=== PATIENT | male | born 1980 | race Caucasian/White ===

== ENCOUNTER 2017-05-24 16:48 | Inpatient (IN) | payer MEDICAID ==
[~2017-05-24] VITALS: Ht 177.8 cm; Wt 148.1 kg
[2017-05-24 18:42] VITALS: BP 174/84; PULSE 92; RESP 19; TEMP 98.3
[2017-05-24] MEDS ORDERED: ALUMINUM/MAGNESIUM/SIMETH 30 ML CUP PO PRN (20:15)
[2017-05-24] MEDS ORDERED: BENZTROPINE MESYLATE 2 MG/2 ML VIAL IM PRN (20:15)
[2017-05-24] MEDS ORDERED: diphenhydrAMINE HCL 50 MG/ML VIAL IM PRN (20:15)
[2017-05-24] MEDS ORDERED: traZODone HCL 50 MG TAB PO PRN (20:15)
[2017-05-24] MEDS ORDERED: BENZTROPINE MESYLATE 1 MG TAB PO PRN (20:15)
[2017-05-24] MEDS ORDERED: ACETAMINOPHEN 325 MG TAB PO PRN (20:15)
[2017-05-24] MEDS ORDERED: diphenhydrAMINE HCL 50 MG CAP PO PRN (20:15)
[2017-05-24] MEDS ORDERED: hydrOXYzine HCL 50 MG TAB PO PRN (20:15)
[2017-05-24] MEDS ORDERED: diphenhydrAMINE HCL 50 MG/ML VIAL - HS PRN IM (20:15)
[2017-05-24] MEDS ORDERED: diphenhydrAMINE HCL 50 MG CAP - HS PRN PO (20:15)
[2017-05-24] MEDS ORDERED: MAGNESIUM HYDROXIDE SUSP 30 ML CUP PO PRN (20:15)
[2017-05-24] MEDS ORDERED: REMOVE OLD NICOTINE PATCH T-DERMAL SCH (21:00)
[2017-05-25 05:39] VITALS: BP 164/97; PULSE 90; RESP 18; TEMP 98; O2SAT 98
[2017-05-25] MEDS ORDERED: NICOTINE 21 MG/24 HR PATCH T-DERMAL SCH (09:00)
[2017-05-25 09:17] LABS: BASOPHIL % 0.6 % (0.0-2.0); EOSINOPHIL # 0.3 TH/MM3 (0-0.4); HEMATOCRIT 43.5 % (39.0-51.0); HEMOGLOBIN 14.7 GM/DL (13.0-17.0); LYMPH % 33.9 % (9.0-44.0); LYMPHOCYTE # 2.5 TH/MM3 (1.0-4.8); MEAN CELL VOLUME 91.9 FL (80.0-100.0); MEAN CORPUSCULAR HGB CONC 33.7 % (32.0-36.0); MEAN PLATELET VOLUME 7.8 FL (7.0-11.0); MONO % 6.9 % (0.0-8.0); MONOCYTE # 0.5 TH/MM3 (0-0.9); NEUT % 54.6 % (16.0-70.0); PLATELET COUNT 221 TH/MM3 (150-450); RED BLOOD COUNT 4.74 MIL/MM3 (4.50-5.90); WHITE BLOOD COUNT 7.4 TH/MM3 (4.0-11.0)
--- NOTE | 2017-05-25 09:23 | HHI.HP ---
Provisional Diagnosis Admission Date May 24, 2017 at 18:18 [place] I. 1. Major depressive disorder, recurrent, severe with psychotic features Rule-out component of drug-induced mood disorder, adjustment reaction, mood disorder due to [facility] 2. Cannabis abuse 3. Rule-out cocaine abuse [place] II. Deferred Certification of Person's Competence To Provide Express and Informed Consent I have personally examined Zelalem Hardin , a person being served at [facility] on, May 25, 2017 09:23. Express and informed consent means consent voluntarily given in writing, by a competent person, after sufficient explanation and disclosure of the subject matter involved to enable the person to make a knowing and willful decision without any element of force, fraud, deceit, duress, or other form of constraint or coercion. This person is 18 years of age or older, is not now known to be incompetent to consent to treatment with a guardian advocate, and does not have a health care surrogate or proxy currently making medical treatment decisions. I have found this person to be one of the following: [x] Competent to provide express and informed consent, as defined above, for voluntary admission to this facility and is competent to provide express and informed consent for treatment. He/she has the consistent capacity to make well reasoned, willful, and knowing decisions concerning his or her medical or mental health treatment. The person fully and consistently understands the purpose of the admission for examination/placement and is fully capable of personally exercising all rights assured [place] Incompetent to provide express and informed consent to voluntary admission, and this is incompetent to provide express and informed consent to treatment. The person must be transferred to involuntary status and a petition for a guardian advocate filed with the Circuit Court. [] Refusing to provide express and informed consent to voluntary admission but is competent to provide express and informed consent for treatment. The person must be discharged or transferred to involuntary status. Form shall be completed within 24 hours of a person's arrival at the receiving facility and filed in the clinical record of each person: 1. Admitted on a voluntary basis 2. Permitted to provide express and informed consent to his/her own treatment 3. Allowed to transfer from involuntary to voluntary status 4. Prior to permitting a person to consent to his or her own treatment after having been previously found incompetent to consent to treatment. History of Present Illness Capacity: Has Capacity Psych Chief Complaint: Depression, SI HPI Mr. Hardin is a 37-year-old male with no previous psychiatric diagnoses who presents in transfer from outside hospital under [place] Act. Documentation from outside hospital reviewed. Patient presented there voluntarily complaining of depression and suicidal ideation with plan to throw himself off of the second floor. Patient was placed under a Peralta act by ED provider. Reviewing the electronic medical record, it appears this is patient's first visit to [facility] Patient seen and examined with nurse. Chart reviewed. Case discussed with nursing staff. On my examination today, the patient is tearful and dysphoric. He reports that he has been feeling increasingly depressed since he lost his job about a month ago. Mood became acutely worse 4-5 days ago without clear trigger. He endorses hypersomnia, decreased appetite, hopeless, worthless and guilty feelings. He endorses onset of suicidal ideation in the same 4-5 day timeframe with plan to throw himself from the second story of his house. He endorses ongoing suicidal ideation now without specific plan, and he contracts for safety on the inpatient unit. Following worsening of his mood, he has experienced onset of auditory hallucinations of voices telling him to run away and also of his children's footsteps. He does not report any CAH to injure self /others. I can elicit no delusional material. The patient does report he feels 'judged' but in context this seems more related to some degree of social anxiety than to, e.g. paranoia. I can elicit no hypomanic or manic symptoms now , nor can I elicit any history of same with close questioning. He reports he had a similar, but much less severe depressive episode about 10 years ago for which he did not seek treatment at the time. The remainder of the psychiatric ROS is negative. The patient has a history of asthma and complains of some mild shortness of breath, and I have ordered albuterol inhaler. No other physical complaints. Past psychiatric history: The patient denies a history of formal psychiatric diagnosis although he does have the previous reported depressive episode noted above. He has never seen an outpatient psychiatrist he tells me, nor has he been on any psychotropic medication treatment. He denies a history of suicide attempts. He does endorse a history of assault charges as a juvenile but denies any legal issues or violent history in adulthood. Family history: The patient reports that his mother and maternal aunt struggle with depression. His mother has attempted suicide in the past. He denies a family history of substance use issues. Chemical dependency history: The patient reports that he has relapsed to substance use in the setting of unemployment. He reports relapsed to cannabis. He believes the cocaine found in his urine toxicology is because his friend slipped some cocaine into the cannabis that he was smoking. Contrary to the report from the outside hospital, the patient denies any significant use of alcohol. He denies use of benzos or synthetics. He denies any other substance use. Social history: The patient is . He has 2 children: a 4-year-old daughter and a 2-year-old son. He has 11th grade education. 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 His works to support the family now and he notes tearfully that she works "too much." He denies any history. He denies any legal history in adulthood. He does keep a hunting rifle locked and unloaded. He notes that his has the escamilla to the weapon. He is of the Buddhism phillip. He denies a history of abuse or other trauma. Review of Systems Except as stated in HPI: all other systems reviewed are Neg Past Family Social History Coded Allergies: Penicillins (Verified Allergy, Intermediate, 05/24/17) Past Medical History Includes a history of asthma and GERD Current Medications Medications (Trade) Dose Ordered Sig/Tayla Route Start Time Stop Time Status Last Admin (Atarax) 50 mg Q6H PRN PO 05/24/17 20:15 Future Hold (Benadryl) 50 mg Q6H PRN PO 05/24/17 20:15 Future Hold (Benadryl Inj) 50 mg Q6H PRN IM 05/24/17 20:15 Future Hold (Cogentin) 1 mg Q12H PRN PO 05/24/17 20:15 Future Hold (Cogentin Inj) 1 mg Q12H PRN IM 05/24/17 20:15 Future Hold (Benadryl) 50 mg HS PRN PO 05/24/17 20:15 Future Hold (Benadryl Inj) 50 mg HS PRN IM 05/24/17 20:15 Future Hold (Desyrel) 50 mg HS PRN PO 05/24/17 20:15 Future Hold (Tylenol) 650 mg Q4H PRN PO 05/24/17 20:15 (Milk Of Magnesia Liq) 30 ml DAILY PRN PO 05/24/17 20:15 (Mag-Al Plus Susp Liq) 30 ml Q6H PRN PO 05/24/17 20:15 (Habitrol 21 Mg Patch.24 Hr) 1 patch DAILY T-DERMAL 05/25/17 09:00 Miscellaneous Information 1 HS T-DERMAL 05/24/17 21:00 (Proair Hfa Inh) 2 puff Q4H PRN INH 05/25/17 09:00 UNV Patient's Strengths (min. 2) In a monitored setting. Attending to basic needs. Physical Exam Physical exam completed by ED provider at outside hospital. On my examination today, the patient appears to be in no acute physical distress. No motor abnormalities noted. No signs of intoxication or withdrawal noted. Labs and vitals reviewed: Vital Signs Vital Signs Date Time Temp Pulse Resp B/P (MAP) Pulse Ox O2 Delivery O2 Flow Rate FiO2 05/25/17 05:39 98.0 90 18 164/97 (119) 98 Lab Results Test 05/25/17 08:45 White Blood Count 7.4 TH/MM3 Red Blood Count 4.74 MIL/MM3 Hemoglobin 14.7 GM/DL Hematocrit 43.5 % Mean Corpuscular Volume 91.9 FL Mean Corpuscular Hemoglobin 31.0 PG Mean Corpuscular Hemoglobin Concent 33.7 % Red Cell Distribution Width 14.0 % Platelet Count 221 TH/MM3 Mean Platelet Volume 7.8 FL Neutrophils (%) (Auto) 54.6 % Lymphocytes (%) (Auto) 33.9 % Monocytes (%) (Auto) 6.9 % Eosinophils (%) (Auto) 4.0 % Basophils (%) (Auto) 0.6 % Neutrophils # (Auto) 4.0 TH/MM3 Lymphocytes # (Auto) 2.5 TH/MM3 Monocytes # (Auto) 0.5 TH/MM3 Eosinophils # (Auto) 0.3 TH/MM3 Basophils # (Auto) 0.0 TH/MM3 CBC Comment DIFF FINAL Differential Comment Laboratories from outside hospital reviewed: Urine toxicology positive for cocaine and cannabinoids. CBC unremarkable. CMP reveals mild hyperglycemia in a nonfasting sample at 121. Tylenol level detectable but not toxic. Salicylate and alcohol level undetectable. Mental Status Examination Appearance: Appropriate Consciousness: Alert Orientation: x4 Motor Activity: Normal gait Speech: Unremarkable Language: Adequate Fund of Knowledge: Adequate Attention and Concentration: Adequate Memory: Unremarkable (Grossly intact on clinical exam) Mood: Other (Depressed) Affect: Other (Tearful, dysphoric) Thought Process & Associations: Intact, Logical, Linear Thought Content: Hallucinations, Other (Rumination) Hallucination Type: Auditory (As noted above) Delusion Type: None Suicidal Ideation: Yes Suicidal Plan: No Suicidal Intention: No (Contracts for safety on inpatient unit) Homicidal Ideation: No Homicidal Plan: No Homicidal Intention: No Insight: Fair Judgment: Impulsive Assessment & Plan Problem List: (1) Major depressive disorder, recurrent, severe with psychotic symptoms ICD Codes: F33.3 - Major depressive disorder, recurrent, severe with psychotic symptoms (2) Cannabis abuse ICD Codes: F12.10 - Cannabis abuse, uncomplicated Assessment & Plan 37-year-old male with psychiatric history as detailed above who presents in transfer from outside hospital under a Peralta act. On my examination today, the patient reports onset of depression following loss of job about a month ago. Mood is acutely worse within the last week with onset of suicidal ideation. The patient reports ongoing suicidal ideation now, albeit without specific plan. He also reports recent onset of psychotic symptoms in the setting of his depression, and I am concerned for a mood disorder with psychotic features, although these also may be related to the substances found in his urine toxicology or to some general medical condition. It is also possible that he is experiencing a particularly severe adjustment reaction to the loss of his job. I will plan to admit the patient to the inpatient psychiatric unit for safety, observation and stabilization. Admit inpatient. Voluntary status. Initiate Prozac 20 mg daily for management of low mood with plans to titrate to effect. For psychotic symptoms, start Abilify 5mg daily with plans to titrate to effect. Will initiate laboratory and imaging workup for organic causes of psychotic symptoms. Ativan as needed for anxiety, Benadryl as needed for sleep, Cogentin as needed for EPS. Albuterol inhaler and Duonebs p.r.n. for wheezing/SOB. PPI for GERD. R/B/A for all medications discussed with patient. In particular, reviewed possibility of sexual side effects with SSRI and metabolic/movement disorder side effects with antipsychotic. BPs elevated, and I will consult hospitalist for further management. Patient has no signs of GABAergic withdrawal at present , and I do not think elevated BP is related to this (EtOH use reported at outside hospital, but patient denies use to me). We will monitor for signs of incipient withdrawal. Vitals every shift. Counselor to see. Collateral information. Disposition planning. Estimated length of stay: 5-7 days. Discharge Planning Pending psychiatric stabilization Request HC Surrog/Guard Advoc?: No Darvin Mejia MD May 25, 2017 09:23
[2017-05-25] MEDS ORDERED: NICOTINE 21 MG/24 HR PATCH T-DERMAL PRN (09:30)
[2017-05-25] MEDS: FLUoxetine HCL 20 MG CAP PO SCH (09:30)
[2017-05-25] MEDS ORDERED: LORazepam 1 MG TAB PO PRN (09:30)
[2017-05-25] MEDS: ARIPiprazole 5 MG TAB PO SCH (09:30)
[2017-05-25] MEDS ORDERED: LORazepam 2 MG/ML VIAL IM PRN (09:30)
[2017-05-25 09:48] LABS: ALBUMIN 3.7 GM/DL (3.4-5.0); AST (GOT) 19 U/L (15-37); BICARBONATE 27.5 MEQ/L (21.0-32.0); BLOOD UREA NITROGEN 12 MG/DL (7-18); CALCIUM 8.6 MG/DL (8.5-10.1); CHLORIDE 107 MEQ/L (98-107); CREATININE 1.22 MG/DL (0.60-1.30); GLOMERULAR FILTRATION RATE 68 ML/MIN (>89); GLUCOSE,RANDOM 148 MG/DL (74-106); SODIUM (NA) 141 MEQ/L (136-145)
[2017-05-25 09:50] LABS: CHOLESTEROL 123 MG/DL (120-200); TRIGLYCERIDES 116 MG/DL (42-150)
[2017-05-25 10:00] LABS: ALKALINE PHOSPHATASE 79 U/L (45-117); ALT (GPT) 33 U/L (12-78); CHOLESTEROL/ HDL RATIO 3.56 RATIO; HDL CHOLESTEROL 34.5 MG/DL (40.0-60.0); LDL CHOLESTEROL 65 MG/DL (0-99); TOTAL BILIRUBIN ADULT 0.3 MG/DL (0.2-1.0); TOTAL PROTEIN 7.7 GM/DL (6.4-8.2)
[2017-05-25] MEDS: ALBUTEROL SULFATE 90 MCG/ACT HFA 8 GM INHALER INH PRN ×2 (10:01→21:15)
[2017-05-25] MEDS ORDERED: RESP: ALBUTEROL 2.5 MG/IPRATROPIUM 0.5 MG NEB (PRN) NEB (12:45)
[2017-05-25] MEDS: PANTOPRAZOLE SOD 40 MG DELAYED RELEASE TAB PO SCH (13:00)
[2017-05-25 16:32] LABS: HEMOGLOBIN A1C 5.6 % (4.3-6.0)
[2017-05-25 16:34] VITALS: BP 152/91; PULSE 89; RESP 16; TEMP 98.4; O2SAT 97
--- NOTE | 2017-05-25 20:36 | RADRPT ---
EXAM DATE/TIME: 05/25/2017 20:26 [facility] COMPARISON: No previous studies available for comparison. INDICATIONS : Altered mental status. RADIATION DOSE: 52.06 CTDIvol (mGy) MEDICAL HISTORY : None SURGICAL HISTORY : None. ENCOUNTER: Initial ACUITY: 1 day PAIN SCALE: 0/10 LOCATION: cranial TECHNIQUE: Multiple contiguous axial images were obtained of the head. Using automated exposure control and adj ustment of the mA and/or kV according to patient size, radiation dose was kept as low as reasonably a chievable to obtain optimal diagnostic quality images. DICOM format image data is available electro nically for review and comparison. FINDINGS: CEREBRUM: The ventricles are normal for age. No evidence of midline shift, mass lesion, hemorrhage or acute in farction. No extra-axial fluid collections are seen. POSTERIOR FOSSA: The cerebellum and brainstem are intact. The 4th ventricle is midline. The cerebellopontine angle i s unremarkable. EXTRACRANIAL: The visualized portion of the orbits is intact. SKULL: The calvaria is intact. No evidence of skull fracture. CONCLUSION: Normal examination. Blayne Virgen MD on May 25, 2017 at 20:33 Board Certified Radiologist. This report was verified electronically.
--- NOTE | 2017-05-25 22:45 | EKG ---
Date Performed: 05/24/2017 Time Performed: 19:42:14 PTAGE: 37 years EKG: Sinus rhythm NORMAL ECG NO PREVIOUS TRACING DOCTOR: Beau Ulloa Interpretating Date/Time 05/25/2017 22:43:37
[2017-05-26 05:43] VITALS: BP 154/76; PULSE 95; RESP 20; TEMP 98.1; O2SAT 98
[2017-05-26] MEDS: ARIPiprazole 5 MG TAB PO SCH (08:39)
[2017-05-26] MEDS: PANTOPRAZOLE SOD 40 MG DELAYED RELEASE TAB PO SCH (08:58)
[2017-05-26] MEDS: FLUoxetine HCL 20 MG CAP PO SCH (08:58)
[2017-05-26] MEDS: REMOVE OLD NICOTINE PATCH T-DERMAL SCH (08:59)
--- NOTE | 2017-05-26 09:42 | HHI.PYPN ---
Subjective Chief Complaint: Depression, SI Remarks Patient seen and examined with nurse. Chart reviewed. Case discussed with nursing staff. No behavioral issues noted overnight. On my examination today, the patient seems significantly less distressed. He says that he is subjectively feeling much better. He says that his visited last night and brought good news that the patient's mother will be moving to the area from [place]. Patient reports resolution of auditory hallucinations. He denies suicidal ideation. He feels more motivated and future oriented. He denies side effects from medications. No physical complaints. Review of Systems Except as stated in HPI: all other systems reviewed are Neg Mental Status Examination Appearance: Appropriate Consciousness: Alert Orientation: x4 Motor Activity: Normal gait, Other (No motor abnormalities noted) Speech: Unremarkable Language: Adequate Fund of Knowledge: Adequate Attention and Concentration: Adequate Memory: Unremarkable (Grossly intact on clinical exam) Mood: Other (Mood is improved today) Affect: Other (Fairly full and reactive) Thought Process & Associations: Intact, Logical, Linear Thought Content: Appropriate Hallucination Type: None Delusion Type: None Suicidal Ideation: No Suicidal Plan: No Suicidal Intention: No Homicidal Ideation: No Homicidal Plan: No Homicidal Intention: No Mental Status Exam Remarks Insight and judgment are fair Results Labs Test 05/25/17 11:10 Ammonia 41 MCMOL/L Hepatitis A IgM Antibody NONREACTIVE Hepatitis B Surface Antigen NONREACTIVE Hepatitis B Core IgM Antibody NONREACTIVE Hepatitis C IgG Antibody NONREACTIVE HIV (1&2) Ab and P24 Ag, 4th Gener NONREACTIVE Labs reviewed. Hepatitis panel negative. HIV screen negative. Vitals/IOs Vital Signs Date Time Temp Pulse Resp B/P (MAP) Pulse Ox O2 Delivery O2 Flow Rate FiO2 05/26/17 05:43 98.1 95 20 154/76 (102) 98 Assessment & Plan Problem List: (1) Adjustment disorder with depressed mood ICD Codes: F43.21 - Adjustment disorder with depressed mood (2) Cannabis abuse ICD Codes: F12.10 - Cannabis abuse, uncomplicated Assessment & Plan With the benefit of further observation and given rapid improvement in symptoms , particularly after brought good news regarding patient's mother, I now suspect that the patient was experiencing more of an adjustment reaction with depressed mood. It is possible that he may have some degree of natalie efren underlying depressive diathesis however, and so I think it makes sense to continue treatment with the Prozac. However, given resolution of auditory phenomena, I think the risk-benefit profile favors discontinuing the Abilify. I have discussed the R/B/A of such a change with patient, and he agrees that it makes sense to discontinue Abilify and monitor. Awaiting hospitalist input. Transfer to lower acuity unit. Collateral information from patient's . Continue other medications and care as ordered. Justification for Cont. Inpt. Monitoring for impairment in safety, none noted Discharge Planning Possible discharge tomorrow or after the weekend Request HC Surrog/Guard Advoc?: No Darvin Mejia MD May 26, 2017 09:42
--- NOTE | 2017-05-26 17:13 | PD.CONS ---
HPI Service [facility] Hospitalists Consult Requested By Psychiatry Reason for Consult Asthma, hypertension Primary Care Physician Unknown Diagnoses: History of Present Illness Mr. Hardin is a 37-year-old male with a history of asthma who was admitted to the hospital in the psychiatric unit under P[place]ta act due to suicidal ideation and depression. Hospitalist service was consulted for medical management. Patient has no acute concern at the time of this interview. He does not have any chest pain, SOB, fever, chills. No changes in bowel or bladder habits. Review of Systems Except as stated in HPI: all other systems reviewed are Neg Past Family Social History Allergies: Coded Allergies: Penicillins (Verified Allergy, Intermediate, 05/24/17) Past Medical History Asthma Past Surgical History No major surgeries in the past Active Ordered Medications Current Medications Medications (Trade) Dose Ordered Sig/Tayla Route Start Time Stop Time Status Last Admin (Cogentin) 1 mg Q12H PRN PO 05/24/17 20:15 Future hold (Cogentin Inj) 1 mg Q12H PRN IM 05/24/17 20:15 Future hold (Benadryl) 50 mg HS PRN PO 05/24/17 20:15 Future hold (Tylenol) 650 mg Q4H PRN PO 05/24/17 20:15 (Milk Of Magnesia Liq) 30 ml DAILY PRN PO 05/24/17 20:15 (Mag-Al Plus Susp Liq) 30 ml Q6H PRN PO 05/24/17 20:15 05/25/17 23:54 (Proair Hfa Inh) 2 puff Q4H PRN INH 05/25/17 09:00 05/25/17 21:15 (Habitrol 21 Mg Patch.24 Hr) 1 patch DAILY PRN T-DERMAL 05/25/17 09:30 (PROzac) 20 mg DAILY PO 05/25/17 09:30 05/26/17 08:58 (Ativan) 1 mg Q6H PRN PO 05/25/17 09:30 (Ativan Inj) 1 mg Q6H PRN IM 05/25/17 09:30 Miscellaneous Information 1 DAILY T-DERMAL 05/26/17 09:00 (Duoneb Neb) 1 ampule Q6HR NEB PRN NEB 05/25/17 12:45 (Protonix) 40 mg DAILY PO 05/25/17 13:00 05/26/17 08:58 Family History Father with hypertension and esophageal cancer Social History Has a history of using cannabis, denies using alcohol. Physical Exam Vital Signs Vital Signs Date Time Temp Pulse Resp B/P (MAP) Pulse Ox O2 Delivery O2 Flow Rate FiO2 05/26/17 05:43 98.1 95 20 154/76 (102) 98 Physical Exam GENERAL: This is a well-nourished, well-developed patient, in no apparent distress. SKIN: No rashes, ecchymoses or lesions. Warm and dry. HEAD: Atraumatic. Normocephalic. No temporal or scalp tenderness. EYES: Pupils equal round and reactive. No injection or drainage. ENT: Nose without bleeding, purulent drainage or septal hematoma. Airway patent. NECK: Trachea midline. No lymphadenopathy. Supple, nontender, no meningeal signs. CARDIOVASCULAR: Regular rate and rhythm without murmurs, gallops, or rubs. No JVD. RESPIRATORY: Clear to auscultation. Breath sounds equal bilaterally. No wheezes , rales, or rhonchi. GASTROINTESTINAL: Abdomen soft, non-tender, nondistended. No guarding. MUSCULOSKELETAL: Extremities without clubbing, cyanosis, or edema. NEUROLOGICAL: Awake and alert. Cranial nerves II through XII intact. No focal neurological deficits. Normal speech. Result Diagram: 05/25/17 0845 05/25/17 0845 Imaging Last Impressions Head CT 05/25/17 0000 Signed Impressions: Service Date/Time: Thursday, May 25, 2017 20:26 - CONCLUSION: Normal examination. Blayne Virgen MD Assessment and Plan Assessment and Plan Mr. Hardin is a pleasant 37 year old male with a history of asthma who was admitted to psychiatry unit due to depression and suicidal ideations. Hospitalist service consulted for asthma, HTN. Asthma - Continue Albuterol, DuoNeb PRN Hypertension - will start patient on Amlodipine 5mg Qday. If needed, we can add Losartan as well. Thank you for the consult. We will peripherally follow this patient. If he remains hemodynamically stable, we will sign off in the next 1-2 days. Leonarda Gaitan DO May 26, 2017 17:13
[2017-05-27 05:05] VITALS: BP 160/95; PULSE 99; RESP 18; TEMP 97.8; O2SAT 96
[2017-05-27] MEDS ORDERED: amLODIPine BESYLATE 5 MG TAB PO SCH (09:00)
[2017-05-27] MEDS: REMOVE OLD NICOTINE PATCH T-DERMAL SCH (09:00)
[2017-05-27] MEDS: PANTOPRAZOLE SOD 40 MG DELAYED RELEASE TAB PO SCH (09:12)
[2017-05-27] MEDS: FLUoxetine HCL 20 MG CAP PO SCH (09:13)
[2017-05-27] MEDS ORDERED: AMLO5 PO ×2 (12:13→12:58)
[2017-05-27] MEDS ORDERED: FLUO20CA12 PO (12:13)
[2017-05-27] MEDS ORDERED: PANT40TA3 PO (12:13)
--- NOTE | 2017-05-27 12:14 | HHI.DS ---
Psychiatry Discharge Summary Inpatient Psychiatric care?: Yes Advance Directive: Yes Mental Health AdvanceDirective: No Health Care Proxy: No Admission Admission Date May 24, 2017 at 18:18 Admission Diagnosis: (1) Major depressive disorder, recurrent, severe with psychotic symptoms ICD Code: F33.3 - Major depressive disorder, recurrent, severe with psychotic symptoms (2) Cannabis abuse ICD Code: F12.10 - Cannabis abuse, uncomplicated Brief History Mr. Hardin is a 37-year-old male with no previous psychiatric diagnoses who presents in transfer from outside hospital under [place] Act. Documentation from outside hospital reviewed. Patient presented there voluntarily complaining of depression and suicidal ideation with plan to throw himself off of the second floor. Patient was placed under a Peralta act by ED provider. Reviewing the electronic medical record, it appears this is patient's first visit to [facility] Patient seen and examined with nurse. Chart reviewed. Case discussed with nursing staff. On my examination today, the patient is tearful and dysphoric. He reports that he has been feeling increasingly depressed since he lost his job about a month ago. Mood became acutely worse 4-5 days ago without clear trigger. He endorses hypersomnia, decreased appetite, hopeless, worthless and guilty feelings. He endorses onset of suicidal ideation in the same 4-5 day timeframe with plan to throw himself from the second story of his house. He endorses ongoing suicidal ideation now without specific plan, and he contracts for safety on the inpatient unit. Following worsening of his mood, he has experienced onset of auditory hallucinations of voices telling him to run away and also of his children's footsteps. He does not report any CAH to injure self /others. I can elicit no delusional material. The patient does report he feels 'judged' but in context this seems more related to some degree of social anxiety than to, e.g. paranoia. I can elicit no hypomanic or manic symptoms now , nor can I elicit any history of same with close questioning. He reports he had a similar, but much less severe depressive episode about 10 years ago for which he did not seek treatment at the time. The remainder of the psychiatric ROS is negative. The patient has a history of asthma and complains of some mild shortness of breath, and I have ordered albuterol inhaler. No other physical complaints. Past psychiatric history: The patient denies a history of formal psychiatric diagnosis although he does have the previous reported depressive episode noted above. He has never seen an outpatient psychiatrist he tells me, nor has he been on any psychotropic medication treatment. He denies a history of suicide attempts. He does endorse a history of assault charges as a juvenile but denies any legal issues or violent history in adulthood. Family history: The patient reports that his mother and maternal aunt struggle with depression. His mother has attempted suicide in the past. He denies a family history of substance use issues. Chemical dependency history: The patient reports that he has relapsed to substance use in the setting of unemployment. He reports relapsed to cannabis. He believes the cocaine found in his urine toxicology is because his friend slipped some cocaine into the cannabis that he was smoking. Contrary to the report from the outside hospital, the patient denies any significant use of alcohol. He denies use of benzos or synthetics. He denies any other substance use. Social history: The patient is . He has 2 children: a 4-year-old daughter and a 2-year-old son. He has 11th grade education. 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 His works to support the family now and he notes tearfully that she works "too much." He denies any history. He denies any legal history in adulthood. He does keep a hunting rifle locked and unloaded. He notes that his has the escamilla to the weapon. He is of the [employer] [place]. He denies a history of abuse or other trauma. Tobacco Use In Past 30 Days: Cigarettes But Not Daily Alcohol Use: Never Hospital Course Patient was admitted to a locked, inpatient psychiatric unit. General medical consultation was obtained. Appropriate precautions were in place throughout patient's hospital stay. Patient was seen and examined on the unit by psychiatry and also visited by counselor. Psychotropic medications were adjusted. Patient tolerated medications well without side effects. Patient had improvement of presenting psychiatric symptomatology during the course of his hospital stay. There was no evidence of any suicidality or homicidality on the inpatient unit. There was no evidence of self-care deficit. Patient remained in good behavioral control and is medication compliant. On the day of discharge: Patient seen and examined with nurse. Chart reviewed. Case discussed with nursing staff. No behavioral issues noted overnight. Case discussed in treatment team. Counselor reports that he has obtained collateral information from the patient's , and patient's reportedly has no safety concerns regarding the patient's case and is comfortable with having him return home today. On my examination today, the patient is requesting discharge from the inpatient psychiatric unit today. He denies any suicidal or homicidal ideation, intent or plan on direct questioning and contracts for safety. Mood is much improved versus admission, and I can elicit no depressive or hypomanic/manic symptoms at this point. An adjustment reaction, now resolved is suspected. The patient notes that a friend has found him some work , and this has relieved a significant stressor. He denies any audiovisual hallucinations. I can elicit no delusional beliefs. There is no evidence of any impairment in reality construction. The patient denies any side effects from medications. He has no physical complaints. Suicide and violence risk assessment on day of discharge both suggest lower imminent risk for mental illness, and the patient's level of function is adequate for outpatient care. Patient has maximized benefit from this inpatient psychiatric hospital stay. He does not meet criteria for involuntary psychiatric hospitalization and is requesting discharge from the inpatient psychiatric unit today. I have no basis to retain him over his objection. Patient will be discharged home today with psychiatric follow-up as arranged by counselor. Patient is also to follow up with primary care. I have counseled the patient to abstain from substances of abuse. I have counseled the patient regarding warning signs for need to return to the psychiatric emergency room as part of a general safety plan. Results Blood Pressure 160 / 95 Vital Signs Date Time Temp Pulse Resp B/P (MAP) Pulse Ox O2 Delivery O2 Flow Rate FiO2 05/27/17 05:05 97.8 99 18 160/95 (116) 96 Laboratory Tests Test 05/25/17 08:45 05/25/17 11:10 Random Glucose 148 MG/DL (74-106) Estimat Glomerular Filtration Rate 68 ML/MIN (>89) HDL Cholesterol 34.5 MG/DL (40.0-60.0) Ammonia 41 MCMOL/L (11-32) Laboratory Results Test 05/25/17 08:45 Cholesterol Level 123 MG/DL (120-200) HDL Cholesterol 34.5 MG/DL (40.0-60.0) Hemoglobin A1c 5.6 % (4.3-6.0) LDL Cholesterol 65 MG/DL (0-99) Triglycerides Level 116 MG/DL (42-150) Summary of Procedures None done Imaging Last Impressions Head CT 05/25/17 0000 Signed Impressions: Service Date/Time: Thursday, May 25, 2017 20:26 - CONCLUSION: Normal examination. Blayne Virgen MD Pending results at discharge: No Medications # of Antipsychotic meds at D/C: 0 Approp Antipsych med options 1 - Minimum of three failed multiple trials of monotherapy. 2 - Documented plan to taper to monotherapy due to previous use of multiple meds OR cross-taper in progress at D/C. 3 - Documentation of augmentation of Clozapine. 4 - Justification other than those listed in allowable values 1-3, document here : Discharge Discharge Date: May 27, 2017 Discharge Diagnosis: (1) Adjustment disorder with depressed mood Diagnosis: Principal (resolved) ICD Code: F43.21 - Adjustment disorder with depressed mood (2) Cannabis abuse Diagnosis: Secondary (counseled to quit) ICD Code: F12.10 - Cannabis abuse, uncomplicated Pt Condition on Discharge: Stable Discharge Disposition: Discharge Home Discharge Instructions Diet Instructions: Heart Healthy Diet Activities you can perform: Weight Bearing as Zak Scheduled Appointment: As per counselors notes New Orders: AMMONIA - 1 Week BASIC METABOLIC PROF - 1 Week New Medications: Lisinopril (Lisinopril) 10 Mg Tab 10 MG PO DAILY, #30 TAB 11 Refills Amlodipine (Norvasc) 5 Mg Tab 5 MG PO DAILY for Blood Pressure Management, #30 TAB 11 Refills Fluoxetine (Fluoxetine) 20 Mg Capsule 20 MG PO DAILY for Mental Health for 15 Days, #15 CAP 1 Refill Pantoprazole (Pantoprazole) 40 Mg Tab 40 MG PO DAILY for Health for 15 Days, #15 TAB 1 Refill Discharge Time <= 30 minutes Mental Status Examination Appearance: Appropriate Consciousness: Alert Orientation: x4 Motor Activity: Normal gait, Other (No abnormal motor movements noted) Speech: Unremarkable Language: Adequate Fund of Knowledge: Adequate Attention and Concentration: Adequate Memory: Unremarkable (Remains grossly intact on clinical exam) Mood: Appropriate Affect: Appropriate, Euthymic Thought Process & Associations: Intact, Logical, Goal directed, Linear Thought Content: Appropriate Hallucination Type: None Delusion Type: None Suicidal Ideation: No Suicidal Plan: No Suicidal Intention: No Homicidal Ideation: No Homicidal Plan: No Homicidal Intention: No Insight: Adequate Judgment: Adequate Discharge/Advance Care Plan Health Problems: (1) Adjustment disorder with depressed mood (2) Cannabis abuse Goals to promote your health * To prevent worsening of your condition and complications * To maintain your health at the optimal level Directions to meet your goals Take your medications as prescribed Follow your dietary instruction Follow activity as directed Keep your appointments as scheduled Take your immunizations and boosters as scheduled If your symptoms worsen call your PCP, if no PCP go to Urgent Care Center or Emergency Room For 30/08 questions related to your inpatient stay or results of tests pending at discharge, please contact Dr. Darvin Mejia at Smoking is Dangerous to Your Health. Avoid second hand smoking Darvin Mejia MD May 27, 2017 12:13
[2017-05-27] MEDS ORDERED: LOSARTAN 50 MG TAB PO ONE (12:15)
[2017-05-27] MEDS ORDERED: LISI10TA3 PO (12:59)
--- NOTE | 2017-05-27 13:00 | HHI.PR ---
Addendum to Inpatient Note Additional Information Patient is being discharged. Chart reviewed. BP is in the 160s systolic. We will continue Amlodipine 5mg and lisinopril 10mg Qday. Patient should follow up with PCP. Discussed with RN. Medically cleared for discharge. Leonarda Gaitan DO May 27, 2017 1:00 pm
[2017-05-28] MEDS ORDERED: LOSARTAN 50 MG TAB PO SCH (09:00)
== END 2017-05-27 14:40 | disposition home or self-care (01) | DRG 881 ==
LOC: EDBD → H270 18:18 → H260 05-26 14:15
PROVIDERS: ADMIT Psychiatry & Neurology Psychiatry; ATTEND Psychiatry & Neurology Psychiatry
DX: F43.21 Adjustment disorder with depressed mood (principal); E72.20 Disorder of urea cycle metabolism, unspecified; R45.851 Suicidal ideations; F14.10 Cocaine abuse, uncomplicated; F12.10 Cannabis abuse, uncomplicated; F40.10 Social phobia, unspecified; J45.909 Unspecified asthma, uncomplicated; K21.9 Gastro-esophageal reflux disease without esophagitis; R73.9 Hyperglycemia, unspecified; I10 Essential (primary) hypertension; Z56.0 Unemployment, unspecified; Z81.8 Family history of other mental and behavioral disorders
CPT/HCPCS: 70450; 80053; 80061; 80074; 82140; 82607; 83036; 84443; 85025; 85652; 86038; 86592; 86703; 93005